=== PATIENT | female | born 1990 ===

== ENCOUNTER 2017-11-12 14:23 | Inpatient (IN) | payer OTHER ==
[~2017-11-12] VITALS: Ht 160 cm; Wt 73.5 kg
[2017-11-19] MEDS ORDERED: ANALPRAM HC 2.530 GM RECTAL (12:58)
[2017-11-19] MEDS ORDERED: PREPLUS CA-FE1 EACH PO (12:58)
[2017-11-19] MEDS ORDERED: ACETAMINOPHEN500 M1 PO (12:58)
[2017-11-19] MEDS ORDERED: Ferro-Plex CAPLET PO (12:58)
== END 2017-11-19 15:21 | DRG 775 ==
LOC: LDR 11-17 14:48 → SURG-SUITE 11-17 14:48 → LDR 11-29 14:23
PROC: 4A1HXCZ Monitoring of Products of Conception, Cardiac Rate, External Approach (ICD-10-PCS; 2017-11-17)
PROC: 10E0XZZ Delivery of Products of Conception, External Approach (ICD-10-PCS; principal; 2017-11-18)
PROC: 0HQ9XZZ Repair Perineum Skin, External Approach (ICD-10-PCS; 2017-11-18)
PROC: 10907ZC Drainage of Amniotic Fluid, Therapeutic from Products of Conception, Via Natural or Artificial Opening (ICD-10-PCS; 2017-11-18)
PROC: 3E033VJ Introduction of Other Hormone into Peripheral Vein, Percutaneous Approach (ICD-10-PCS; 2017-11-18)
DX: O70.0 First degree perineal laceration during delivery (principal); O99.02 Anemia complicating childbirth; O69.81X0 Labor and delivery complicated by cord around neck, without compression, not applicable or unspecified; Z3A.38 38 weeks gestation of pregnancy; Z37.0 Single live birth